=== PATIENT | female | born 1950 | race Caucasian/White ===

== ENCOUNTER 2016-11-06 08:36 | Emergency (ER) | payer OTHER ==
[2016-11-06 08:44] VITALS: BP 128/076
[2016-11-06] MEDS ORDERED: NS 1,000 ML IV ONE (09:03)
[2016-11-06] MEDS ORDERED: SODIUM CHLORIDE 0.9% INJ ONE (09:04)
[2016-11-06] MEDS ORDERED: SOLU-MEDROL IV ONE (09:04)
[2016-11-06] MEDS ORDERED: ATIVAN IV ONE (09:04)
[2016-11-06] MEDS ORDERED: BENADRYL IV ONE (09:04)
[2016-11-06] MEDS ORDERED: PEPCID IV ONE (09:04)
--- NOTE | 2016-11-06 09:08 | PROVIDER DOCUMENTATION ---
HPI-General Adult - General Chief Complaint: Allergic Reaction Stated Complaint: ALLERGIC REACTION/TONGUE SWELL Time Seen by Provider: 11/06/16 08:58 Source: patient Allergies/Adverse Reactions: Patient Allergies Allergy/AdvReac Type Severity Reaction Status Date / Time ondansetron HCl * Allergy VOMITING Verified 11/06/16 08:44 [From Zofran (as hydrochloride)] migraine med Allergy Mild HEADACHE Uncoded 11/06/16 08:44 Home Medications: Olanzapine 1 tab PO HS 03/09/16 Amlodipine/Atorvastatin [Amlodipine-Atorvast 10-40 mg] 1 tab PO DAILY 06/19/16 Thyroid Med 11/06/16 - History of Present Illness -Gen Adult Nature of Presenting Problems: Pt reports to er with cc of allergic reaction to unknown etiology. Pt reports under the tongue swelling x 1 hour. States hasn't eaten anything this morning just had a sprite. Pt reports hasn't smoked in years and started back last night.Denies sob,throat swelling,itchying. Reports also having anxiety for past 30 minutes. No cardiac hx had stress test last year. Location of Pain/Injury: reports: mouth Quality of Pain: reports: none Severity: reports: mild Onset/Duration: reports: 1 hour ago Timing: reports: still present Similar Symptoms Previously?: No Recently seen or treated by another doctor?: No Review of Systems - Adult - REVIEW OF SYSTEMS - ADULT Constitutional: denies: chills, fever, fatique Eyes: reports: no symptoms reported Ears, Nose, Mouth & Throat: reports: see HPI, other (under tongue swelling). denies: hearing loss, tinnitus, sinus problem, throat pain Cardiovascular: reports: no symptoms reported Respiratory: reports: no symptoms reported Gastrointestinal: reports: no symptoms reported Genitourinary: reports: no symptoms reported Musculoskeletal: reports: no symptoms reported Integumentary: reports: no symptoms reported Neurological: reports: no symptoms reported Psychiatric: reports: anxiety. denies: alcohol/drug dependence, depression, emotional problems Endocrine: reports: no symptoms reported Hematologic/Lymphatic: reports: no symptoms reported Allergic/Immunologic: reports: no symptoms reported All Other Systems: Reviewed and Negative Past History - Adult - PAST MEDICAL HISTORY-ADULT Review of Records: reports: Nursing Assessment Review Major Childhood Illnesses: reports: denies history Cardiovascular: reports: HTN, hyperlipidemia. denies: A-Fib Respiratory: reports: COPD, sleep apnea Gastrointestinal: reports: cholelithiasis Genitourinary: reports: chronic UTI's. denies: kidney disease, kidney stones, polycystic kidney disease, retention Musculoskeletal: reports: chronic pain. denies: fibromyalgia Neurological: reports: stroke deficits Psychiatric: reports: anxiety, bipolar, depression Endocrine/Immune: reports: thyroid disorder Other Conditions: reports: denies history - PRIOR SURGERIES/PROCEDURES Surgical/Procedure History: reports: appendectomy, cholecystectomy, hysterectomy , tonsillectomy, hernia repair, other (bladder tack;gall bladder removal) - IMMUNIZATION STATUS Childhood Immunizations: See Nurse Assessment Flu Vaccine: See Nurse Assessment - FAMILY HISTORY Family History: reviewed, not pertinent - SOCIAL HISTORY Smoking: cigarettes, less than 1 pack/day Provider spent 3-5 mins advising pt. on dangers of tobacco.: Discussed manners to quit use, and f/u contacts for add'l counseling. Substance Use: none/never Physical Exam-General - PHYSICAL EXAM-ADULT Initial Vital Signs Reviewed: Yes - CONSTITUTIONAL General Appearance: appears well, alert, no apparent distress, anxious - EYES Eyes: PERRL/EOMI - HEAD, EARS, NOSE, MOUTH & THROAT HENMT: moist mucous membranes, TMs normal, pharynx normal, other (moderately swollen under tongue no ulcers or signs of infection) - NECK Neck: non-tender, full range of motion. negative: lymphadenopathy - RESPIRATORY Respiratory: chest non-tender, lungs clear, normal breath sounds, no pleuratic chest pain, no respiratory distress, no accessory muscle use - CARDIOVASCULAR Cardiovascular: normal peripheral pulses, regular rate, rhythm, no edema, no gallop, no JVD, no murmur - GASTROINTESTINAL (ABDOMEN) Abdominal Exam: normal bowel sounds, non tender, soft, no organomegaly, no pulsatile mass - MUSCULOSKELETAL Extremity: normal range of motion, non-tender, swelling (mild bilateral ankle edema) Peripheral Pulses: dorsalis-pedis (R): 2+, dorsalis-pedis (L): 2+ - SKIN Integumentary: normal color, normal turgor, warm/dry - NEUROLOGIC Neurologic: no motor/sensory deficits - PSYCHIATRIC Psych/Mental Status: normal thought content, normal thought process, oriented x 3, anxious Progress - PLAN OF CARE/RESULTS Progress/Plan/Lab Results: Orders Category Date Time Status CHEST-PORTABLE [RAD] Stat Exams 11/06/16 09:04 Ordered BASIC METABOLIC PANEL [CHEM] Stat Lab 11/06/16 09:04 Ordered PRO B-NATRIURETIC PEPTIDE Stat Lab 11/06/16 09:04 Ordered TROPONIN T Stat Lab 11/06/16 09:04 Ordered 0.9% Sodium Chloride Inj [Ns] 1,000 ml Med 11/06/16 09:03 Active IV 999 mls/hr Diphenhydramine [Benadryl] Med 11/06/16 09:04 Discontinued 25 mg IV NOW ONE Famotidine [Pepcid] Med 11/06/16 09:04 Discontinued 20 mg IV NOW ONE Lorazepam [Ativan] Med 11/06/16 09:04 Discontinued 1 mg IV NOW ONE Methylprednisolone Sod Succ [Solu-Medrol] Med 11/06/16 09:04 Discontinued 125 mg IV NOW ONE Sodium Chloride 0.9% Med 11/06/16 09:04 Discontinued 5 - 10 ml INJ NOW ONE EKG [EKG] Stat Ther 11/06/16 09:04 Ordered Vital Signs - 24 hr 11/06/16 08:42 Temperature 98 F Pulse Rate 100 H Respiratory 22 Rate Blood Pressure 128/076 O2 Sat by Pulse 92 L Oximetry Laboratory Tests 11/06/16 11/06/16 11/06/16 09:17 09:17 09:17 Sodium 137 Potassium 3.5 Chloride 97 L Carbon Dioxide 28 Anion Gap 12 BUN 10 Creatinine 0.6 Estimated GFR/1.73 m2 > 60 BUN/Creatinine Ratio 17 Glucose 135 H Calculated Osmolality 275 Calcium 9.7 Troponin T < 0.010 [id number] Pept 42 - EKG 1 Time of EKG reading by physician:: 09:08 EKG Read and Signed by:: Damir Love EKG Interpretation (*Must complete 3 of following elements*): Normal Rate: 82 Rhythm: nsr [place]: normal QRS: normal - XRAY 1 XRAY: Bilateral XRAY Study: Chest Impression: Normal XRAY Interpretation: nad Departure - Departure Time of Disposition Order: 10:19 DIAGNOSIS: Allergic reaction Qualifiers: Encounter type: initial encounter Qualified Code(s): T78.40XA - Allergy, unspecified, initial encounter Disposition: HOME 01 Certified Medical Emergency: Emergent Condition: Stable Additional Instructions: Follow up with pcp ED Follow Up Instructions: You have been treated by a care provider in the Emergency Department. These instructions are being provided to you so you can have an understanding of how to care for yourself upon discharge. Upon discharge from the Emergency Department, you are responsible for making arrangements for follow-up care by a physician of your choice. Take all prescribed medications as directed. Return to the Emergency Department immediately for any new or worsening symptoms. You may call the Physician Referral phone number at [phone] to obtain a list of Physicians who are taking new patients. Attestation - Scribe Verification/Attestation Scribe:: Elbert Ramsey Acting as Scribe for:: Damir Love Scribe documention review:: This chart was documented by a scribe and accurately reflects the service the provider performed and the decisions made by the provider.
--- NOTE | 2016-11-06 09:28 | EKG Report ---
Test Performed on : 11/06/2016 09:08:13 AM Test Reason : CP Blood Pressure : / mmHG Vent. Rate : 082 BPM Atrial Rate : 082 BPM P-R Int : 158 ms QRS Dur : 074 ms QT Int : 384 ms P-R-T Axes : 046 054 048 degrees QTc Int : 448 ms Normal sinus rhythm. Normal ECG When compared with ECG of 19-JUN-2016 18:37, No significant change was found Unconfirmed Result
[2016-11-06 09:37] LABS: AGAP 12; BUN 10 mg/dL (8-22); CALCIUM 9.7 mg/dL (8.8-10.2); CHLORIDE 97 mmol/L (98-107); COSMO 275; POTASSIUM 3.5 mmol/L (3.5-5.1); SODIUM 137 mmol/L (136-145); TCO2 28 mmol/L (25-35)
--- NOTE | 2016-11-06 10:08 | Diag Imaging Result Document ---
PROCEDURE NAME: CHEST-PORTABLE - 11/06/2016 SINGLE FRONTAL RADIOGRAPH OF THE CHEST: COMPARISON: 06/19/2016. FINDINGS: There is evidence of prior granulomatous disease, stable. The lungs are grossly clear. There is no definite pleural fluid collection. Cardiac silhouette is grossly unremarkable. IMPRESSION: No definite acute pathology.
[2016-11-06] MEDS ORDERED: NORCO-10 PO ONE (10:19)
== END 2016-11-06 10:50 | disposition home or self-care (01) ==
LOC: P.ED 08:36 → SUPCPDRO 08:36 → P.ED 10:50
DX: T78.40XA Allergy, unspecified, initial encounter (principal); K14.8 Other diseases of tongue; I10 Essential (primary) hypertension; E78.5 Hyperlipidemia, unspecified; J44.9 Chronic obstructive pulmonary disease, unspecified; Z87.440 Personal history of urinary (tract) infections; G89.29 Other chronic pain; I69.90 Unspecified sequelae of unspecified cerebrovascular disease; Z79.899 Other long term (current) drug therapy; E07.9 Disorder of thyroid, unspecified; F41.9 Anxiety disorder, unspecified; F31.9 Bipolar disorder, unspecified; F32.9 Major depressive disorder, single episode, unspecified; F17.210 Nicotine dependence, cigarettes, uncomplicated; Z71.6 Tobacco abuse counseling; R60.9 Edema, unspecified
CPT/HCPCS: 71010; 80048; 83880; 84484; 93005; 96361; 96374; 96375; J1200; J2060; J2930; J7030

== ENCOUNTER 2019-01-23 10:54 | Inpatient (IN) ==
[2019-01-23 11:29] LABS: BASO# 0.03 X1000 (0.0-0.2); BASO% 0.3 % (0.0-0.8); HEMATOCRIT 50.9 % (37.0-47.0); IMM GRAN# 0.02 X1000 (0.0-0.04); IMM GRAN% 0.2 % (0.0-0.5); LYMPH# 2.62 X1000 (1.2-3.4); MCH 27.9 PG (27-31); MCHC 29.5 g/dL (33-37); MCV 94.6 FL (81-99); MONO# 0.83 X1000 (0.11-0.59); MONO% 8.5 % (1.7-9.3); MPV 9.9 FL (7.4-10.4); NEUT# 6.11 X1000 (1.4-6.5); PLT 180 X1000 (130-400); RBC 5.38 XMIL (4.2-5.4); WBC 9.71 X1000 (4.8-10.8)
[2019-01-23 11:33] LABS: BE 10.3 mmoll (-3.0-3.0); BLOOD TYPE ARTERIAL; HCO3-(ACT) 32.3 mmoll (20.0-26.0); METHB 1.2 % (0.0-1.5); O2(CT) 17.3 mL/dL (15.0-23.0); SAMPLE BLOOD; SAO2 87.2 % (95.0-100.0); THB 15.8 g/dL (11.5-17.4); pH(98.6) 7.34 (7.35-7.45)
[2019-01-23 11:36] LABS: PCO2(98.6) 74 mmHg (35-45); PO2(98.6) 45 mmHg (60-100)
[2019-01-23 11:37] LABS: ALLEN TEST YES; MODALITY CANNULA; O2HB 78.1 % (95.0-99.0)
[2019-01-23 11:41] LABS: ALBUMIN 3.9 g/dL (3.5-5.0); POTASSIUM 4.8 mmol/L (3.5-5.1); TOTAL BILIRUBIN 0.5 mg/dL (0.20-1.00)
--- NOTE | 2019-01-23 12:40 | Diag Imaging Result Doc PS360 ---
EXAM: CHEST-PORTABLE INDICATION: sob TECHNIQUE: One view COMPARISON: 11/21/2018 FINDINGS: Inspiration is suboptimal. The lungs are grossly clear. There is no discrete pleural fluid collection or pneumothorax. The cardiomediastinal silhouette and central vasculature are grossly unremarkable. IMPRESSION: No evidence of acute pathology by plain radiograph. Electronically signed by Daljit Hernandez 01/23/2019 12:38 PM
[2019-01-23] MEDS ORDERED: DUONEB (A & A) INH ONE (12:51)
[2019-01-23] MEDS ORDERED: SALINE LOCK IV FLUID XX ONE (14:09)
[2019-01-23] MEDS ORDERED: ZOFRAN IV PRN (14:11)
[2019-01-23] MEDS: SOLU-MEDROL IV SCH ×2 (15:57→22:07)
[2019-01-23] MEDS: ROCEPHIN 1 GM in NS 50 ML IV SCH (15:57)
[2019-01-23] MEDS: DUONEB (A & A) INH SCH ×3 (16:04→23:14)
--- NOTE | 2019-01-23 16:05 | HISTORY AND PHYSICAL ---
CHIEF COMPLAINT: Shortness of breath. HISTORY OF PRESENT ILLNESS: Patient is an incredibly noncompliant, 68-year-old female who has a known history of COPD and chronic hypoxic respiratory failure, as well as chronic ongoing tobacco abuse. The patient unfortunately refuses to wear her oxygen very frequently at home. She refuses to eat on any regular basis. The family notes that she [*] most of the time. In addition, when she decides to smoke she will lock herself in the bathroom and smoke, which she has been doing more heavily recently. ALLERGIES: Zofran. MEDICATIONS: 1. EpiPen. 2. Suboxone 06/03, although has been decreasing. Currently is on half a strip a day. 3. Hypothyroidism for which she takes Synthroid. 4. Amlodipine 10 mg. 5. Benicar 40. 6. Benazepril. 7. BuSpar. 8. Lexapro. 9. Lasix. 10. Zyprexa. PAST MEDICAL HISTORY: 1. Hypertension. 2. Hyperlipidemia. 3. COPD. 4. Sleep apnea. 5. History of cholelithiasis. 6. History of cervical cancer. 7. Chronic UTI. 8. Chronic pain and chronic opiate overuse. Currently is stable on Suboxone and is improving. 9. Bipolar depression. 10. Hypothyroidism. PAST SURGICAL HISTORY: Appendectomy, cholecystectomy, hysterectomy, tonsillectomy, hernia repair. FAMILY HISTORY: Noncontributory. SOCIAL HISTORY: Patient does not currently abuse opiates. She has been stable on Suboxone and, in fact, has been weaning down Suboxone. She continues to smoke up to a pack a day. Denies alcohol use. REVIEW OF SYSTEMS: Positive increasing cough, congestion. Increasing shortness of breath and dyspnea on exertion. Positive increased work of breathing. Denies any fevers, chills. Denies any production to her cough. Denies focalized numbness, tingling, or weakness, but has been generally weak. Positive headaches. Still having chronic pain. Seems to be tolerating Suboxone. Denies any diarrhea, constipation, melena, hematochezia. Denies dysuria, urinary frequency, or urgency. Denies skin rashes, weight loss, or weight gain. PHYSICAL EXAMINATION: VITAL SIGNS: Temperature 98.7, pulse 111, respiratory 20, BP 93/55 to 111/45, saturation 94% on Ventimask currently. GENERAL: Patient is awake, alert. She is in mild to moderate respiratory distress. She is sitting up on the side of the bed. She is pleasant to talk with and answers questions appropriately. HEENT: Normocephalic. NECK: Supple. CV: Regular rate. No current murmurs. CHEST: Decreased breath sounds. Positive wheezing throughout. No crackles. ABDOMEN: Soft, nondistended. EXTREMITIES: Moves all extremities. NEUROLOGIC: No focal changes. ASSESSMENT: 1. Chronic obstructive pulmonary disease with exacerbation. 2. Acute on chronic hypercapnic respiratory failure. 3. Acute on chronic hypoxic respiratory failure. 4. Elevated carboxyhemoglobin at 9.1 secondary to her continued persistence smoke. 5. Chronic tobacco abuse. 6. Bipolar. 7. Diabetes. 8. Hypertension. 9. Others. PLAN: We will continue patient in the hospital. Place her on steroids, breathing treatments, oxygen, antibiotics, and will follow. cc: Odin Her MD
--- NOTE | 2019-01-23 16:42 | EKG Report ---
Test Performed on : 01/23/2019 11:40:28 AM Test Reason : emboli Blood Pressure : / mmHG Vent. Rate : 084 BPM Atrial Rate : 084 BPM P-R Int : 148 ms QRS Dur : 064 ms QT Int : 390 ms P-R-T Axes : 047 069 048 degrees QTc Int : 460 ms Normal sinus rhythm. Normal ECG When compared with ECG of 22-JUL-2018 10:32, Sinus rhythm. has replaced Atrial flutter. Unconfirmed Result
[2019-01-23 18:36] LABS: BILIRUBIN URINE NEGATIVE (NEGATIVE); BLOOD URINE NEGATIVE (NEGATIVE); CLARITY CLEAR (CLEAR); COLOR YELLOW; GLUCOSE URINE NEGATIVE (NEGATIVE); KETONE URINE TRACE mg/dL (NEGATIVE); LEUKOCYTES URINE 2+ (NEGATIVE); NITRITE URINE NEGATIVE (NEGATIVE); PROTEIN URINE NEGATIVE (NEGATIVE); UROBILINOGEN URINE NORMAL
[2019-01-23 18:39] LABS: URINE SOURCE CLEAN CATCH
[2019-01-23 18:40] LABS: URINE BACTERIA 4+ /HFP; URINE CAST NONE SEEN /LPF; URINE CRYSTAL NONE SEEN /HPF; URINE EPITHELIAL CELLS >10 /HPF (<10); URINE RBC <10 /HPF (<10); URINE YEAST NONE SEEN /HPF
[2019-01-24 06:00] LABS: HEMOGLOBIN 14.3 g/dL (12.0-16.0); MCH 27.2 PG (27-31); MCHC 29.8 g/dL (33-37); MCV 91.4 FL (81-99); MPV 10.5 FL (7.4-10.4); RBC 5.25 XMIL (4.2-5.4); RDW 13.8 % (11.5-14.5); WBC 8.66 X1000 (4.8-10.8)
[2019-01-24 06:18] LABS: AGAP 13; ALBUMIN 3.9 g/dL (3.5-5.0); ALKALINE PHOSPHATASE 112 U/L (32-104); BUN 20 mg/dL (8-22); CALCIUM 9.4 mg/dL (8.8-10.2); CHLORIDE 91 mmol/L (98-107); COSMO 275; CREATININE 0.9 mg/dL (0.5-0.9); ESTIMATED GFR > 60; GLUCOSE 146 mg/dL (70-104); GOT 14 U/L (10-30); GPT 10 U/L (10-36); POTASSIUM 4.5 mmol/L (3.5-5.1); SODIUM 135 mmol/L (136-145); TCO2 30 mmol/L (25-35); TOTAL PROTEIN 8.1 g/dL (6.3-8.3)
[2019-01-24] MEDS: DUONEB (A & A) INH SCH ×2 (07:44→11:33)
[2019-01-24] MEDS: SOLU-MEDROL IV SCH ×3 (08:28→23:21)
[2019-01-24 11:41] LABS: BE 7.5 mmoll (-3.0-3.0); BLOOD TYPE ARTERIAL; HCO3-(ACT) 30.5 mmoll (20.0-26.0); METHB 1.3 % (0.0-1.5); O2(CT) 18.6 mL/dL (15.0-23.0); PO2(98.6) 57 mmHg (60-100); SAMPLE BLOOD; SAO2 92.3 % (95.0-100.0); pH(98.6) 7.38 (7.35-7.45)
[2019-01-24 11:45] LABS: PCO2(98.6) 59 mmHg (35-45)
[2019-01-24 11:46] LABS: ALLEN TEST YES; MODALITY CANNULA; O2HB 88.3 % (95.0-99.0)
[2019-01-24] MEDS: TYLENOL PO PRN (14:00)
[2019-01-24] MEDS: ROCEPHIN 1 GM in NS 50 ML IV SCH (14:00)
[2019-01-24] MEDS ORDERED: XOPENEX NEB ONE (15:23)
[2019-01-24] MEDS: SPIRIVA INH SCH (15:30)
[2019-01-24] MEDS: XOPENEX NEB INH SCH ×3 (15:30→23:16)
--- NOTE | 2019-01-24 15:33 | PROGRESS NOTE ---
DATE: 01/24/2019 SUBJECTIVE: She is sitting up in bed. A little bit tremulous. Her breathing she feels is better. OBJECTIVE: Vital Signs: Blood pressure is 122/80, heart rate of 102, respiratory rate of 22, temperature 97.4, saturations are 93% on 4 L. Cardiovascular: Regular rate and rhythm. Pulmonary: I do not hear any significant wheezing and she has decent air movement throughout. Gastrointestinal: Soft, nontender, nondistended. Bowel sounds are positive. LABORATORY DATA: White count 8, hemoglobin and hematocrit 14 and 48, platelets 182,000. PH 7.38, pCO2 59, PaO2 57. That is actually an improvement from pH 7.34, pCO2 74, PaO2 of 45. The rest of her films are fine. PROBLEM LIST: 1. Acute COPD exacerbation. We will continue breathing treatments, steroids. At this point, we have not put her on any antibiotics. I think she is fairly frail. I am going to go ahead and put her on some oxygen. She is very adamant about going home, but she is not on her baseline level of oxygen. Her family also is a little bit fed up with her noncompliance. Her daughter was there who describes herself as the caregiver. She says the patient does not take her breathing treatments like she should. She continues to smoke. She refuses all type of medications to help her with smoking, patches and Chantix and all kinds of other medication, she always has an excuse. She does not take her regular medicines and she does not take her breathing treatments regularly. We had long discussion reinforcement on what she needs to take and regularly. Now, she is not on any maintenance medications which I find it unlikely, but I think we will try to get her on some long-term beta agonist, long-term steroid because she is not going to take her breathing treatments. She is on Suboxone but she really needs to be on some sort of LABA so I am going to start Advair, will try Advair and see how she does. 2. Persistent tobacco abuse. Talked about quitting. 3. Bipolar disorder. Will continue her regular medications. DISPOSITION: Anticipate at least one more day here, but she will need some treatment at home. We may consider some home health to help her with her medications because she is high risk for decompensation, just because of her poor lack of compliance. cc: Doc Desir MD MTDD
[2019-01-24] MEDS: BUSPAR PO SCH (16:52)
[2019-01-24] MEDS: ZITHROMAX 500 MG/NS 500 MG/250 ML IVPB IV SCH (16:54)
[2019-01-24] MEDS: ADVAIR 250/50 DISKUS INH SCH (19:28)
[2019-01-24] MEDS ORDERED: LEXAPRO PO SCH (21:00)
[2019-01-24] MEDS ORDERED: DESYREL PO SCH (21:00)
[2019-01-25] MEDS: XOPENEX NEB INH SCH ×4 (03:17→15:20)
[2019-01-25] MEDS ORDERED: SYNTHROID PO SCH (07:00)
[2019-01-25 07:19] LABS: HEMATOCRIT 45.6 % (37.0-47.0); HEMOGLOBIN 14.2 g/dL (12.0-16.0); IMM GRAN# 0.03 X1000 (0.0-0.04); IMM GRAN% 0.2 % (0.0-0.5); LYMPH# 0.72 X1000 (1.2-3.4); LYMPH% 4.9 % (20.5-51.1); MCHC 31.1 g/dL (33-37); MCV 89.8 FL (81-99); MONO# 0.53 X1000 (0.11-0.59); MONO% 3.6 % (1.7-9.3); MPV 10.4 FL (7.4-10.4); NEUT# 13.47 X1000 (1.4-6.5); NEUT% 91.3 % (42.2-75.2); PLT 182 X1000 (130-400); RBC 5.08 XMIL (4.2-5.4); WBC 14.75 X1000 (4.8-10.8)
[2019-01-25 07:35] LABS: AGAP 13; BUN 23 mg/dL (8-22); CALCIUM 9.6 mg/dL (8.8-10.2); CHLORIDE 92 mmol/L (98-107); COSMO 280; CREATININE 0.7 mg/dL (0.5-0.9); ESTIMATED GFR > 60; GLUCOSE 169 mg/dL (70-104); POTASSIUM 4.9 mmol/L (3.5-5.1); SODIUM 136 mmol/L (136-145); TCO2 31 mmol/L (25-35)
[2019-01-25 07:54] LABS: BANDS 1 % (0-1); LYMPHS 7 % (21-51); MONO 6 % (1-9); SEGS 86 % (42-75)
[2019-01-25] MEDS: SPIRIVA INH SCH (08:05)
[2019-01-25] MEDS: ADVAIR 250/50 DISKUS INH SCH (08:05)
[2019-01-25] MEDS: SOLU-MEDROL IV SCH (08:29)
[2019-01-25] MEDS: BUSPAR PO SCH (08:30)
[2019-01-25] MEDS ORDERED: NORVASC PO SCH (09:00)
[2019-01-25] MEDS ORDERED: LEXAPRO PO SCH (09:00)
[2019-01-25] MEDS ORDERED: THERA M PLUS PO SCH (09:00)
[2019-01-25] MEDS ORDERED: ZYPREXA PO SCH (09:00)
[2019-01-25] MEDS ORDERED: LASIX PO SCH (09:00)
[2019-01-25] MEDS ORDERED: BENICAR PO SCH (09:00)
[2019-01-25] MEDS: TYLENOL PO PRN (10:32)
[2019-01-25] MEDS ORDERED: SODIUM CHLORIDE 0.9% INJ PRN (12:55)
[2019-01-25] MEDS ORDERED: PHENERGAN IV PRN (12:55)
[2019-01-25] MEDS: ROCEPHIN 1 GM in NS 50 ML IV SCH (14:10)
[2019-01-25 14:19] VITALS: BP 98/49
--- NOTE | 2019-01-25 15:20 | DISCHARGE SUMMARY ---
ADMISSION DATE: 01/23/2019 DISCHARGE DATE: 01/25/2019 PRIMARY CARE PHYSICIAN: Dr. Odin Her. ADMISSION DIAGNOSES: 1. Acute chronic obstructive pulmonary disease exacerbation. 2. Acute on chronic hypercapnic respiratory failure. 3. Acute on chronic hypoxic respiratory failure. 4. Elevated carboxyhemoglobin at 9.1, secondary to her continued persistent smoking. 5. Chronic tobacco abuse. 6. Bipolar. 7. Diabetes. 8. Hypertension. DISCHARGE DIAGNOSES: 1. Acute chronic obstructive pulmonary disease exacerbation. 2. Persistent tobacco abuse. 3. Bipolar disorder. SUMMARY: This is a incredibly noncompliant 68-year-old female who presents to the emergency room, who apparently refuses to wear oxygen very frequently at home. She refuses to eat on a regular basis and then she will decide to smoke and lock herself in the bathroom and has been doing more heavily recently. She was admitted, placed on O2, Xopenex every 4 hours, Rocephin 1 gram IV every 24, azithromycin 500 IV every 24. She was placed on Solu-Medrol IV and weaned as she has improved. It is now felt that she can safely be discharged home today. DISCHARGE MEDICATIONS: 1. Amlodipine/olmesartan 10/40 p.o. daily 2. BuSpar 5 mg p.o. daily. 3. Lexapro 5 mg p.o. q.a.m. and 10 mg p.o. at bedtime. 4. Advair 250/50 Diskus 1 puff inhalation b.i.d. #1 inhaler with 1 refill. 5. Lasix 40 mg p.o. daily. 6. Synthroid 100 mcg p.o. daily. 7. Multivitamin p.o. daily 8. Olanzapine 5 mg p.o. daily. 9. A prescription for Spiriva 1 puff inhalation daily #1 inhaler with 1 refill. 10. Trazodone 100 mg p.o. at bedtime. 11. DuoNeb 4 times daily #120 with 3 refills. 12. A prescription for azithromycin 500 mg p.o. daily #4 with no refills. 13. Omnicef 300 mg p.o. b.i.d. #14 with no refills. 14. Prednisone 10 mg p.o. daily #30 with no refills. FOLLOWUP: She will need to follow up with her primary care physician in 1 to 2 weeks and call the office for an appointment and continue her home O2 usage. We discussed at length smoking cessation with this patient who verbalizes understanding but has no desire to quit at this time. TIME SPENT: 33 minutes Dictated by MARY Noguera for Doc Desir MD cc: MARY Noguera MD Gregory S. Cheatham, MD
--- NOTE | 2019-01-25 15:21 | Diag Imaging Result Doc PS360 ---
EXAM: CHEST-2 VIEWS - 01/25/2019 HISTORY: hypoxia TECHNIQUE: Chest two views COMPARISON: 01/23/2019 portable chest FINDINGS: Inspiration is somewhat shallow. There are ill-defined infiltrates, edema, or atelectasis at the bilateral lung bases. There is a small right pleural effusion. There are no other acute changes identified. Heart size is stable. IMPRESSION: Somewhat shallow inspiration. Ill-defined infiltrates, edema, or atelectasis at bilateral lung bases. Small right pleural effusion. Electronically signed by Arnoldo Chavarria 01/25/2019 3:18 PM
[2019-01-25] MEDS: ZITHROMAX 500 MG/NS 500 MG/250 ML IVPB IV SCH (17:45)
--- NOTE | 2019-01-26 00:25 | PROGRESS NOTE ---
DATE: 01/25/2019 SUBJECTIVE: The patient day of discharge, she is doing better. No major complaints. She seems to be well. OBJECTIVE DATA: Her sat is still 94% on 4 L. We have not been able to wean her down. Her chest x-ray today is really, I feel, unchanged, some infiltrates at the bases. ASSESSMENT AND PLAN: In any case, patient was felt stable for discharge and she will go home on Spiriva, which is new, prednisone taper, Omnicef, azithromycin to complete 4 days or 5 total days, albuterol, and Advair. These are new medications. Further documents per Ashlee Arteaga. She will need close follow up. I recommend pulmonary follow- up too because she, apparently, does not see a energy attorney, but we will continue to monitor. cc: Doc Desir MD
--- NOTE | 2019-01-28 10:25 | PROVIDER DOCUMENTATION ---
This chart was entered by Maryann Garza Scribe, acting as scribe for Marv Martinez MD. HPI-Respiratory General - General Stated Complaint: OXYGEN LOW Time Seen by Provider: 01/23/19 10:59 Source: patient, family Allergies/Adverse Reactions: Patient Allergies Allergy/AdvReac Type Severity Reaction Status Date / Time ondansetron HCl * Allergy VOMITING Verified 06/13/18 18:43 [From Zofran (as hydrochloride)] migraine med Allergy Mild HEADACHE Uncoded 06/13/18 18:43 Home Medications: Home Medication List Medication Instructions Recorded Confirmed Last Taken Type Epinephrine Auto Injector [Epipen] 0.3 mg .SEE ORDER PRN PRN #1 11/06/16 11/21/18 Unknown Rx [email or web address] Buprenorphine HCl/Naloxone HCl 8 mg SL DAILY 06/14/18 11/21/18 Unknown History [Suboxone 8 mg/2 mg Sl Film] Levothyroxine [Synthroid] 100 microgm PO DAILY 06/14/18 11/21/18 Unknown History Amlodipine Bes/Olmesartan Med 1 each PO DAILY 11/21/18 11/21/18 Unknown History [Amlodipine-Olmesartan 10-40 mg] Amoxicillin 875 mg PO BID #20 tab 11/21/18 Unknown Rx Benazepril HCl 10 mg PO DAILY 11/21/18 11/21/18 Unknown History Buspirone [Buspar] 5 mg PO DAILY 11/21/18 11/21/18 Unknown History Escitalopram Oxalate 5 mg PO QAM 11/21/18 11/21/18 Unknown History Escitalopram [Lexapro] 10 mg PO QHS 11/21/18 11/21/18 Unknown History Furosemide [Lasix] 40 mg PO DAILY 11/21/18 11/21/18 Unknown History Multivit with Calcium,Iron,Min 1 each PO DAILY 11/21/18 11/21/18 Unknown History [Womens Multiple Vitamins] Olanzapine 5 mg PO DAILY 11/21/18 11/21/18 Unknown History Trazodone [Desyrel] 100 mg PO QHS 11/21/18 11/21/18 Unknown History - History of Present Illness-Resp Nature of Presenting Problem: 68 year old female presents to the ER with complaint of low oxygen level since this am. Pt's family member states she does not keep her oxygen on like she is instructed to and this am her oxygen level dropped into the 70s. Pt is a smoker but states she has cut way back. Pt has COPD and this am has fluid retention on BLE. Pt is shaking and complains of back pain. Denies fever or being sick. Quality of Pain: reports: pressure Onset/Duration: reports: this morning Timing: reports: still present Cough Quality/Degree: reports: moderate Episode Frequency: chronic episodes Current Respiratory Medication Therapy: Initiated A/A nebulizer Modifying Factors: improves with: albuterol nebulizer, oxygen Associated Symptoms: reports: cough, dizziness, shortness of breath Review of Systems - Adult - REVIEW OF SYSTEMS - ADULT Constitutional: denies: chills, fever Eyes: reports: no symptoms reported Ears, Nose, Mouth & Throat: reports: no symptoms reported Cardiovascular: denies: chest pain, palpitations Respiratory: reports: chronic cough, shortness of breath Gastrointestinal: reports: no symptoms reported Genitourinary: reports: no symptoms reported Musculoskeletal: reports: no symptoms reported Integumentary: reports: no symptoms reported Neurological: reports: dizziness/vertigo, tremors Psychiatric: reports: no symptoms reported Endocrine: reports: no symptoms reported Hematologic/Lymphatic: reports: no symptoms reported Allergic/Immunologic: reports: no symptoms reported All Other Systems: Reviewed and Negative Past History - Adult - PAST MEDICAL HISTORY-ADULT Review of Records: reports: Nursing Assessment Review, Medications Reviewed Major Childhood Illnesses: reports: denies history Cardiovascular: reports: HTN, hyperlipidemia Respiratory: reports: COPD, sleep apnea Gastrointestinal: reports: cholelithiasis Obstetrical/Gynecological: reports: other (cervical cancer) Genitourinary: reports: chronic UTI's. denies: kidney disease, kidney stones, polycystic kidney disease, retention Musculoskeletal: reports: chronic pain. denies: fibromyalgia Neurological: reports: stroke deficits Psychiatric: reports: anxiety, bipolar, depression Endocrine/Immune: reports: thyroid disorder Other Conditions: reports: denies history - PRIOR SURGERIES/PROCEDURES Surgical/Procedure History: reports: appendectomy, cholecystectomy, hysterectomy , tonsillectomy, hernia repair, other (bladder tack;gall bladder removal) - IMMUNIZATION STATUS Childhood Immunizations: See Nurse Assessment Flu Vaccine: See Nurse Assessment - FAMILY HISTORY Family History: reviewed, not pertinent - SOCIAL HISTORY Smoking: cigarettes Provider spent 3-5 mins advising pt. on dangers of tobacco.: Discussed manners to quit use, and f/u contacts for add'l counseling. Physical Exam-General - PHYSICAL EXAM-ADULT Initial Vital Signs Reviewed: Yes - CONSTITUTIONAL General Appearance: alert, no apparent distress - EYES Eyes: PERRL/EOMI, pink conjunctivae - HEAD, EARS, NOSE, MOUTH & THROAT HENMT: normocephalic/atraumatic - NECK Neck: supple, normal inspection - RESPIRATORY Respiratory: wheezing - CARDIOVASCULAR Cardiovascular: normal peripheral pulses, regular rate, rhythm - MUSCULOSKELETAL Back Exam: no CVA tenderness, no vertebral tenderness Extremity: normal range of motion, normal inspection - SKIN Integumentary: cyanosis - NEUROLOGIC Neurologic: grossly normal, no motor/sensory deficits - PSYCHIATRIC Psych/Mental Status: normal mood/affect, normal thought content, normal thought process, oriented x 3 Progress - PLAN OF CARE/RESULTS Progress/Plan/Lab Results: Vital Signs - 8 hr 01/23/19 11:02 01/23/19 11:15 01/23/19 11:16 Temperature 98.7 F Pulse Rate 111 H 102 H Respiratory Rate 20 18 Blood Pressure 109/69 93/55 O2 Sat by Pulse Oximetry 80 L 86 L 84 L 01/23/19 11:32 01/23/19 11:35 01/23/19 11:46 Temperature Pulse Rate 93 H 85 Respiratory Rate 18 18 Blood Pressure 94/69 111/45 O2 Sat by Pulse Oximetry 89 L 94 L 97 01/23/19 12:01 Temperature Pulse Rate 83 Respiratory Rate 21 Blood Pressure 99/63 O2 Sat by Pulse Oximetry 95 Laboratory Results - last 24 hr 01/23/19 01/23/19 01/23/19 11:10 11:10 11:10 WBC 9.71 RBC 5.38 Hgb 15.0 Hct 50.9 H MCV 94.6 MCH 27.9 MCHC 29.5 L RDW Std Deviation 14.0 Plt Count 180 MPV 9.9 Immature Gran % (Auto) 0.2 Neut % (Auto) 63.0 Lymph % (Auto) 27.0 [place] % (Auto) 8.5 Eos % (Auto) 1.0 Baso % (Auto) 0.3 Immature Gran # (Auto) 0.02 Neut # (Auto) 6.11 Lymph # (Auto) 2.62 [place] # (Auto) 0.83 H Eos # (Auto) 0.10 Baso # (Auto) 0.03 Specimen Type Sample Site pH pCO2 pO2 HCO3 Base Excess Oxyhemoglobin ABG O2 Sat (Calculated) ABG O2 Saturation ABG Carboxyhemoglobin ABG Methemoglobin Eh Test A-a O2 Difference Total Hemoglobin Lactate Liter Flow Blood Gas Modality FiO2 % Sodium 140 Potassium 4.8 Chloride 95 L Carbon Dioxide 37 H Anion Gap 8 BUN 10 Creatinine 1.0 H Estimated GFR/1.73 m2 55 BUN/Creatinine Ratio 10 Glucose 119 H Calculated Osmolality 280 Calcium 9.0 Total Bilirubin 0.50 AST 13 ALT 10 Alkaline Phosphatase 120 H Creatine Kinase 55 Troponin T Total Protein 8.0 Albumin 3.9 Globulin 4.0 Albumin/Globulin Ratio 1.0 Plasma Lactate 01/23/19 01/23/19 01/23/19 11:10 11:10 11:20 WBC RBC Hgb Hct MCV MCH MCHC RDW Std Deviation Plt Count MPV Immature Gran % (Auto) Neut % (Auto) Lymph % (Auto) [place] % (Auto) Eos % (Auto) Baso % (Auto) Immature Gran # (Auto) Neut # (Auto) Lymph # (Auto) [place] # (Auto) Eos # (Auto) Baso # (Auto) Specimen Type ARTERIAL Sample Site L RADIAL pH 7.34 L pCO2 74 H* pO2 45 L* HCO3 32.3 H Base Excess 10.3 H Oxyhemoglobin 78.1 L* ABG O2 Sat (Calculated) 17.3 ABG O2 Saturation 87.2 L ABG Carboxyhemoglobin 9.10 H* ABG Methemoglobin 1.2 Eh Test YES A-a O2 Difference 91.0 Total Hemoglobin 15.8 Lactate 1.30 Liter Flow 3.0 Blood Gas Modality CANNULA FiO2 % 32.0 Sodium Potassium Chloride Carbon Dioxide Anion Gap BUN Creatinine Estimated GFR/1.73 m2 BUN/Creatinine Ratio Glucose Calculated Osmolality Calcium Total Bilirubin AST ALT Alkaline Phosphatase Creatine Kinase Troponin T < 0.010 Total Protein Albumin Globulin Albumin/Globulin Ratio Plasma Lactate 1.7 Orders Category Date Time Status Oxygen Therapy- ED Nursing DIRECTED Care 01/23/19 12:16 Active CHEST-PORTABLE [RAD] Stat Exams 01/23/19 11:42 Completed ABG [RESP] Routine Lab 01/23/19 11:20 Completed CBC WITH ELECTRONIC DIFF [HEME] Stat Lab 01/23/19 11:10 Completed CK PROFILE [SP CHEM] Stat Lab 01/23/19 11:10 Completed COMPREHENSIVE METABOLIC PANEL [CHEM] Stat Lab 01/23/19 11:10 Completed LACTATE, PLASMA [CHEM] Stat Lab 01/23/19 11:10 Completed TROPONIN T Stat Lab 01/23/19 11:10 Completed EKG [EKG] Routine Ther 01/23/19 11:09 Ordered Transfer/Admit Order [TRANSFER] Routine Transfer 01/23/19 12:05 Ordered Result Diagrams: 01/23/19 11:10 01/23/19 11:10 - EKG 1 Time of EKG reading by physician:: 12:05 EKG Read and Signed by:: Marv Martinez EKG Interpretation (*Must complete 3 of following elements*): Normal Rate: 84 Rhythm: normal sinus rhythm Follett: normal QRS: normal - XRAY 1 XRAY Study: Chest Impression: Normal (IMPRESSION: No evidence of acute pathology by plain r adiograph.), See EMR Report (EXAM: CHEST-PORTABLE INDICATION: sob TECHNIQUE: One view COMPARISON: 11/21/2018 FINDINGS: Inspiration is suboptimal. The lungs are grossly clear. There is no discrete pleural fluid collection or pneumothorax. The cardiomediastinal silhouette and central vasculature are grossly unremarkable. IMPRESSION: No evidence of acute pathology by plain radiograph.) XRAY Interpretation: per radiologist Departure - Departure Date of Disposition Decision: 01/23/19 Time of Disposition Decision: 12:06 DIAGNOSIS: COPD (chronic obstructive pulmonary disease), Non-compliance Disposition: ADMITTED INPATIENT 09 Certified Medical Emergency: Emergent Condition: Stable Referrals and Follow-Ups: Odin Her MD [Primary Care Provider] - - Critical Care Note This patient required my direct & personal management of CC.: No Attestation - Physician/ GLENDY Attestation Patient care was provided by Advanced Practice Provider:: No The physician spent face to face time with patient:: Yes Advanced Practice Provider documentation review:: Supervising physician onsite and consulted in the evaluation and care of this patient. The physician did have a face to face encounter with the patient. This chart was documented by the indicated scribe, (Maryann Garza Scribe) and accurately reflects the services I performed and decisions made by me, Marv Martinez MD, as attested by the provider's signature.
== END 2019-01-25 17:27 | disposition home or self-care (01) | DRG 190 ==
LOC: P.ED 10:54 → P.MEDSURG 12:50 → SUATTDRO 12:50
PROVIDERS: ATTEND Internal Medicine
CPT/HCPCS: 36415; 71010; 71020; 71045; 71046; 80048; 80053; 81001; 82550; 82805; 83605; 83735; 84484; 85025; 85027; 87088; 93005; 94640; 94761; 94799; 99285; A9270; J0456; J0696; J2920; J2930